=== PATIENT | male | born 1985 | race American Indian/Alaskan Native ===

== ENCOUNTER 2016-12-29 13:00 | Emergency (ER) | payer MEDICAID ==
[2016-12-29 13:01] VITALS: BMI 23.7
[2016-12-29 14:11] VITALS: BP 131/85; PULSE 65; RESP 18; TEMP 98.4; O2SAT 99
--- NOTE | 2016-12-29 15:18 | ED PDOC ---
Arrival/HPI - General Chief Complaint: Abnormal Skin Integrity Time Seen by Provider: 12/29/16 15:12 Historian: Patient - History of Present Illness Narrative History of Present Illness (Text): 12/29/16 15:28 31yr old male presents today with a 3 month history of rash to the left posterior scalp. Patient states about 3 months ago he was prescribed a medication for ringworm that he has been applying to the posterior scalp. Patient states he also has applied bleach. Patient states she now just has a bald spot to the posterior scalp. He denies pruritus. Patient states the hair will not grow back and he doesn't know what to do. Denies fevers or chills. Denies any other complaints. Patient states he does not have a primary care physician in the area. Past Medical History - Provider Review Nursing Documentation Reviewed: Yes - Travel History Have you recently traveled outside [place] w/in the past 3 mons?: No - Infectious Disease Hx of Infectious Diseases: None - Tetanus Immunization Tetanus Immunization: Unknown - Past Medical History Past Medical History: No Previous - Psychiatric Hx Substance Use: No - Past Surgical History Past Surgical History: No Previous - Anesthesia Hx Anesthesia: No - Suicidal Assessment Feels Threatened In Home Enviroment: No Family/Social History - Physician Review Nursing Documentation Reviewed: Yes Family/Social History: Unknown Family HX Smoking Status: Never Smoked Hx Alcohol Use: Yes Frequency of alcohol use: Socially Hx Substance Use: No Hx Substance Use Treatment: No Allergies/Home Meds Allergies/Adverse Reactions: Allergies No Known Allergies Allergy (Verified 03/11/16 09:38) Review of Systems - Review of Systems Constitutional: absent: Fatigue, Fevers Eyes: absent: Eye Pain ENT: absent: Sinus Congestion Respiratory: absent: SOB, Cough Cardiovascular: absent: Chest Pain Gastrointestinal: absent: Abdominal Pain Musculoskeletal: absent: Arthralgias Skin: Rash. absent: Pruritis Neurological: absent: Headache Psychiatric: absent: Anxiety Physical Exam Vital Signs Reviewed: Yes Vital Signs Temp Pulse Resp BP Pulse Ox 12/29/16 14:10 98.4 F 65 18 131/85 99 Temperature: Afebrile Blood Pressure: Normal Pulse: Regular Respiratory Rate: Normal Appearance: Positive for: Well-Appearing, Non-Toxic, Comfortable Pain Distress: None Mental Status: Positive for: Alert and Oriented X 3 - Systems Exam Head: Present: Atraumatic, Normocephalic, Other (there is a golf ball sized area of alopecia located to the left side of the posterior scalp; no scaling noted; no tenderness; no erythema; ) Mouth: Present: Moist Mucous Membranes Neck: Present: Normal Range of Motion Respiratory/Chest: Present: Clear to Auscultation, Good Air Exchange. No: Respiratory Distress, Accessory Muscle Use Cardiovascular: Present: Regular Rate and Rhythm, Normal S1, S2. No: Murmurs Neurological: Present: GCS=15 Skin: Present: Warm, Dry, Normal Color Psychiatric: Present: Alert, Oriented x 3 Medical Decision Making ED Course and Treatment: 12/29/16 15:36 31-year-old male with an area of alopecia to the left posterior scalp 3 months Patient has been on anti-fungal medication without improvement. I advised patient that he needs to follow-up with a insurance writer for further evaluation. I will place the patient on Lotrisone twice daily to the affected area in the meanwhile. Patient may need oral antifungal medications. I will defer to the insurance writer. Patient nontoxic well-appearing no distress with stable vital signs Patient verbalizes understanding of discharge instructions and need for immediate followup. all aspects of this case were discussed the attending of record. Impression: Ringworm use Lotrisone twice daily to the affected area Follow up with the insurance writer within the next 2 days. Follow up with the primary care physician within the next 2 days. return if symptoms worsen,persist or if new symptoms develop. Disposition/Present on Arrival - Present on Arrival Any Indicators Present on Arrival: No History of DVT/PE: No History of Uncontrolled Diabetes: No Urinary Catheter: No History of Decub. Ulcer: No History Surgical Site Infection Following: None - Disposition Have Diagnosis and Disposition been Completed?: Yes Diagnosis: Ringworm of the scalp Disposition: HOME/ ROUTINE Disposition Time: 15:18 Patient Plan: Discharge Condition: GOOD Additional Instructions: use Lotrisone twice daily to the affected area Follow up with the insurance writer within the next 2 days. Follow up with the primary care physician within the next 2 days. return if symptoms worsen,persist or if new symptoms develop. Prescriptions: Clotrimazole/Betamethasone [Lotrisone] 1 appl EXT BID #1 tube Referrals: Nomi Verma MD [Staff Provider] - Follow up with primary Kristy Taveras MD [Staff Provider] - Follow up with primary Shimon Cool MD [Staff Provider] - Follow up with primary Forms: [employer] ([place])
== END 2016-12-29 15:45 | disposition home or self-care (01) ==
LOC: ED 13:00
DX: B35.0 Tinea barbae and tinea capitis (principal)

== ENCOUNTER 2017-06-06 00:15 | Emergency (ER) | payer MEDICAID ==
[2017-06-06 00:17] VITALS: BMI 23.7
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
[2017-06-06] MEDS ORDERED: TDAP Vaccine 0.5 mL Syr IM ONE (00:31)
[2017-06-06 00:46] VITALS: BP 110/80; PULSE 79; TEMP 98.6
[2017-06-06 01:00] VITALS: RESP 19; O2SAT 99
== END 2017-06-06 01:00 | disposition home or self-care (01) ==
LOC: ED 00:15
DX: S61.411A Laceration without foreign body of right hand, initial encounter (principal); W20.8XXA Other cause of strike by thrown, projected or falling object, initial encounter; Y92.009 Unspecified place in unspecified non-institutional (private) residence as the place of occurrence of the external cause; Z23 Encounter for immunization

== ENCOUNTER 2017-06-12 20:28 | Emergency (ER) | payer MEDICAID ==
[2017-06-12 20:29] VITALS: BMI 23.7
[2017-06-12 21:12] VITALS: BP 130/84; PULSE 77; RESP 16; TEMP 97.8; O2SAT 96
--- NOTE | 2017-06-12 21:14 | ED PDOC ---
Arrival/HPI - General Chief Complaint: Suture/Staple Removal Time Seen by Provider: 06/12/17 21:13 Historian: Patient - History of Present Illness Narrative History of Present Illness (Text): 06/12/17 21:13 32 y/o male, here for the suture removal s/p sutured abut 6 days ago. Pt. stated that he has no numbness or tingling, no headache or night sweat, no rash , no palpitation, no rash, no other medical or psychological complaints. Past Medical History - Provider Review Nursing Documentation Reviewed: Yes - Infectious Disease Hx of Infectious Diseases: None - Tetanus Immunization Tetanus Immunization: Unknown - Past Medical History Past Medical History: No Previous - Psychiatric Hx Psychophysiologic Disorder: No Hx Substance Use: No - Past Surgical History Past Surgical History: No Previous - Anesthesia Hx Anesthesia: No - Suicidal Assessment Feels Threatened In Home Enviroment: No Family/Social History - Physician Review Nursing Documentation Reviewed: Yes Family/Social History: Unknown Family HX Smoking Status: Never Smoked Hx Alcohol Use: Yes Hx Substance Use: No Hx Substance Use Treatment: No Allergies/Home Meds Allergies/Adverse Reactions: Allergies No Known Allergies Allergy (Verified 06/12/17 20:51) Home Medications: Home Meds Medication Instructions Recorded Confirmed No Known Home Med 06/12/17 06/12/17 Review of Systems - Review of Systems Constitutional: absent: Fatigue, Fevers Eyes: absent: Vision Changes ENT: absent: Hearing Changes Respiratory: absent: SOB, Cough Cardiovascular: absent: Chest Pain Gastrointestinal: absent: Abdominal Pain, Diarrhea, Nausea, Vomiting Skin: Laceration. absent: Rash, Pruritis, Abscess, Ulcer Neurological: absent: Headache, Dizziness Psychiatric: absent: Anxiety, Depression Physical Exam Vital Signs Reviewed: Yes Vital Signs Temp Pulse Resp BP Pulse Ox 06/12/17 20:54 97.8 F 77 16 130/84 96 Temperature: Afebrile Blood Pressure: Normal Pulse: Regular Respiratory Rate: Normal Appearance: Positive for: Well-Appearing, Non-Toxic, Comfortable Pain Distress: None Mental Status: Positive for: Alert and Oriented X 3 - Systems Exam Head: Present: Atraumatic, Normocephalic Pupils: Present: PERRL Extroacular Muscles: Present: EOMI Conjunctiva: Present: Normal Respiratory/Chest: Present: Clear to Auscultation, Good Air Exchange. No: Respiratory Distress, Accessory Muscle Use Cardiovascular: Present: Regular Rate and Rhythm, Normal S1, S2. No: Murmurs Abdomen: Present: Normal Bowel Sounds. No: Tenderness, Distention, Peritoneal Signs Back: Present: Normal Inspection Upper Extremity: Present: Normal Inspection, Other (rt. wrist dorsum visible 4 reminaing sutures with the wound is healing and not completely healed, no streaking or ulcers. ). No: Cyanosis, Edema Lower Extremity: Present: Normal Inspection. No: Edema Neurological: Present: GCS=15, Speech Normal, Motor Func Grossly Intact, Gait Normal, Memory Normal Skin: Present: Warm, Dry, Normal Color. No: Rashes Psychiatric: Present: Alert, Oriented x 3, Normal Insight, Normal Concentration Medical Decision Making ED Course and Treatment: 06/12/17 21:35 -I told the patient to return to the ER in 2 days for suture removal. -Discharge home with follow up with your own pmd and return to the ER in 2 days for suture removal, return to the ER for any new or worsening signs or symptoms. - PA / CONFIGURATION MANAGEMENT ARCHITECT / Resident Statement / has reviewed & agrees with the documentation as recorded. Disposition/Present on Arrival - Present on Arrival Any Indicators Present on Arrival: No History of DVT/PE: No History of Uncontrolled Diabetes: No Urinary Catheter: No History of Decub. Ulcer: No History Surgical Site Infection Following: None - Disposition Have Diagnosis and Disposition been Completed?: Yes Diagnosis: Visit for wound check Disposition: HOME/ ROUTINE Disposition Time: 21:36 Patient Plan: Discharge Condition: GOOD Additional Instructions: -Discharge home with follow up with your own pmd and return to the ER in 2 days for suture removal, return to the ER for any new or worsening signs or symptoms. Referrals: [facility] [place] [Outside] - Follow up with primary
== END 2017-06-12 21:39 | disposition home or self-care (01) ==
LOC: ED 20:28
DX: Z48.89 Encounter for other specified surgical aftercare (principal)

== ENCOUNTER 2017-06-16 11:11 | Emergency (ER) | payer MEDICAID ==
[2017-06-16 11:11] VITALS: BMI 23.7
[2017-06-16 11:16] VITALS: BP 124/82; PULSE 66; RESP 16; TEMP 98; O2SAT 99
--- NOTE | 2017-06-16 11:30 | ED PDOC ---
Arrival/HPI - General Historian: Patient - General Chief Complaint: Suture/Staple Removal Time Seen by Provider: 06/16/17 11:12 - History of Present Illness Narrative History of Present Illness (Text): 06/16/17 11:27 Pt is a 32 yo M presents to ED for suture removal. Patient returned 7 days after sutures had been placed, 1 suture was removed at that time, but it was deemed that the laceration had no healed completely. He returned today for removal of the other 4 nylon sutures. Pt denied pain, swelling, discharge, erythema. (Boyd Reese) Past Medical History - Infectious Disease Hx of Infectious Diseases: None - Tetanus Immunization Tetanus Immunization: Unknown - Past Medical History Past Medical History: No Previous - Cardiac Hx Cardiac Disorders: No - Pulmonary Hx Respiratory Disorders: No - Neurological Hx Neurological Disorder: No - HEENT Hx HEENT Disorder: No - Renal Hx Renal Disorder: No - Endocrine/Metabolic Hx Endocrine Disorders: No - Hematological/Oncological Hx Blood Disorders: No - Integumentary Hx Dermatological Disorder: No - Musculoskeletal/Rheumatological Hx Musculoskeletal Disorders: No - Gastrointestinal Hx Gastrointestinal Disorders: No - Genitourinary/Gynecological Hx Genitourinary Disorders: Yes Hx Sexually Transmitted Diseases: Yes - Psychiatric Hx Psychophysiologic Disorder: No Hx Substance Use: No - Past Surgical History Past Surgical History: No Previous - Anesthesia Hx Anesthesia: No - Suicidal Assessment Feels Threatened In Home Enviroment: No Family/Social History Family/Social History: No Known Family HX Smoking Status: Never Smoked Hx Alcohol Use: Yes Hx Substance Use: No Hx Substance Use Treatment: No Allergies/Home Meds Allergies/Adverse Reactions: Allergies No Known Allergies Allergy (Verified 06/16/17 11:21) Home Medications: Home Meds Medication Instructions Recorded Confirmed No Known Home Med 06/12/17 06/16/17 Review of Systems - Review of Systems Constitutional: Normal Eyes: Normal ENT: Normal Respiratory: Normal Cardiovascular: Normal Gastrointestinal: Normal Genitourinary Male: Normal Musculoskeletal: Normal Skin: Normal Neurological: Normal Endocrine: Normal Hemo/Lymphatic: Normal Psychiatric: Normal Physical Exam Temperature: Afebrile Blood Pressure: Normal Pulse: Regular Respiratory Rate: Normal - Systems Exam Head: Present: Atraumatic, Normocephalic Conjunctiva: Present: Normal Mouth: Present: Moist Mucous Membranes Neck: Present: Normal Range of Motion Respiratory/Chest: Present: Clear to Auscultation Cardiovascular: Present: Regular Rate and Rhythm Abdomen: Present: Normal Bowel Sounds. No: Tenderness, Distention, Peritoneal Signs Upper Extremity: Present: Normal Inspection Lower Extremity: Present: Normal Inspection Neurological: Present: GCS=15 Skin: Present: Other (4 sutures removed; skin well approximated and healed on the dorsum of right hand) Psychiatric: Present: Alert, Oriented x 3 Vital Signs Temp Pulse Resp BP Pulse Ox 06/16/17 11:15 98.0 F 66 16 124/82 99 Medical Decision Making ED Course and Treatment: 06/16/17 11:29 Assessment: 32 yo M presents for suture removal Plan: - 4 nylon sutures removed (Boyd Reese) 06/16/17 12:19 pt seen with resident sutures c/d/i, removed by resident. (Raphael Souza) Disposition/Present on Arrival - Present on Arrival Any Indicators Present on Arrival: No History of DVT/PE: No History of Uncontrolled Diabetes: No Urinary Catheter: No History of Decub. Ulcer: No History Surgical Site Infection Following: None - Disposition Have Diagnosis and Disposition been Completed?: Yes Disposition Time: 11:30 - Disposition Diagnosis: Visit for suture removal Disposition: HOME/ ROUTINE Condition: STABLE Discharge Instructions (ExitCare): Stitches Removal (ED) Additional Instructions: May clean area with soap and water, do not scrub. Forms: [employer] ([place]yan)
== END 2017-06-16 11:40 | disposition home or self-care (01) ==
LOC: ED 11:11
DX: Z48.02 Encounter for removal of sutures (principal)

== ENCOUNTER 2017-07-01 03:41 | Emergency (ER) | payer MEDICAID ==
[2017-07-01 03:41] VITALS: BMI 23.7
[2017-07-01 03:52] VITALS: RESP 18
--- NOTE | 2017-07-01 04:10 | ED PDOC ---
Arrival/HPI - General Chief Complaint: Flu-like Symptoms Time Seen by Provider: 07/01/17 03:42 Historian: Patient - History of Present Illness Narrative History of Present Illness (Text): 07/01/17 04:07 Ned Mueller is a 32 year old male who presents to the Emergency department complaining of sore throat, chest congestion, headache,some neck discomfort.No hx. of any trauma. Patient denies any fever, chills, chest pain, shortness of breath, nausea, vomiting, back pain, neck pain, dizziness, or any other complaints. Symptom Onset: Gradual Symptom Course: Unchanged Activities at Onset: Light Context: Home Past Medical History - Provider Review Nursing Documentation Reviewed: Yes - Infectious Disease Hx of Infectious Diseases: None - Tetanus Immunization Tetanus Immunization: Unknown - Past Medical History Past Medical History: No Previous - Cardiac Hx Cardiac Disorders: No - Pulmonary Hx Respiratory Disorders: No - Neurological Hx Neurological Disorder: No - HEENT Hx HEENT Disorder: No - Renal Hx Renal Disorder: No - Endocrine/Metabolic Hx Endocrine Disorders: No - Hematological/Oncological Hx Blood Disorders: No - Integumentary Hx Dermatological Disorder: No - Musculoskeletal/Rheumatological Hx Musculoskeletal Disorders: No - Gastrointestinal Hx Gastrointestinal Disorders: No - Genitourinary/Gynecological Hx Genitourinary Disorders: Yes Hx Sexually Transmitted Diseases: Yes - Psychiatric Hx Psychophysiologic Disorder: No Hx Substance Use: No - Past Surgical History Past Surgical History: No Previous - Anesthesia Hx Anesthesia: No - Suicidal Assessment Feels Threatened In Home Enviroment: No Family/Social History - Physician Review Nursing Documentation Reviewed: Yes Family/Social History: Unknown Family HX Smoking Status: Never Smoked Hx Alcohol Use: Yes Hx Substance Use: No Hx Substance Use Treatment: No Allergies/Home Meds Allergies/Adverse Reactions: Allergies No Known Allergies Allergy (Verified 07/01/17 03:54) Review of Systems - Physician Review All systems were reviewed & negative as marked: Yes - Review of Systems Constitutional: Normal. absent: Fevers Eyes: Normal ENT: Sore Throat Respiratory: absent: Cough Cardiovascular: Normal. absent: Chest Pain Gastrointestinal: Normal. absent: Abdominal Pain, Diarrhea, Nausea, Vomiting Genitourinary Male: Normal. absent: Dysuria, Frequency, Hematuria, Urinary Output Changes Musculoskeletal: Normal. absent: Back Pain, Neck Pain Skin: Normal. absent: Rash Neurological: Headache. absent: Dizziness Endocrine: Normal Hemo/Lymphatic: Normal Psychiatric: Normal Physical Exam Vital Signs Reviewed: Yes Vital Signs Temp Pulse Resp BP Pulse Ox 07/01/17 05:40 98.2 F 65 18 130/87 98 07/01/17 03:51 97.6 F 80 18 146/96 H 99 Temperature: Afebrile Blood Pressure: Normal Pulse: Regular Respiratory Rate: Normal Appearance: Positive for: Well-Appearing, Non-Toxic, Comfortable Pain Distress: None Mental Status: Positive for: Alert and Oriented X 3 - Systems Exam Head: Present: Atraumatic, Normocephalic Pupils: Present: PERRL Extroacular Muscles: Present: EOMI Conjunctiva: Present: Normal Ears: Present: Normal, NORMAL TM, Normal Canal. No: Erythema, TM Bulging, Fluid , TM Perf Mouth: Present: Moist Mucous Membranes Pharnyx: Present: ERYTHEMA (Erythema to posterior pharynx). No: EXUDATE, TONSILS ENLARGED, Peritonsilar Swelling, Uvular Deviation, Muffled/Hoarse Voice , Strider, Soft Palate/Uvular Edema Nose (External): Present: Atraumatic Nose (Internal): Present: Normal Inspection Neck: Present: Normal Range of Motion (Supple). No: Meningeal Signs, MIDLINE TENDERNESS, Paraspinal Tenderness Respiratory/Chest: Present: Clear to Auscultation, Good Air Exchange. No: Respiratory Distress, Accessory Muscle Use Cardiovascular: Present: Regular Rate and Rhythm, Normal S1, S2. No: Murmurs Abdomen: Present: Normal Bowel Sounds. No: Tenderness, Distention, Peritoneal Signs Back: Present: Normal Inspection. No: CVA Tenderness, Midline Tenderness, Paraspinal Tenderness Upper Extremity: Present: Normal Inspection. No: Cyanosis, Edema Lower Extremity: Present: Normal Inspection. No: Edema Neurological: Present: GCS=15, CN II-XII Intact, Speech Normal Skin: Present: Warm, Dry, Normal Color. No: Rashes Psychiatric: Present: Alert, Oriented x 3, Normal Insight, Normal Concentration Medical Decision Making ED Course and Treatment: 07/01/17 04:07 Impression: 32 year old male complaining of sore throat, chest congestion,headache,neck discomfort.. Plan: -- CT Head w/o contrast -- Labs -- Rapid influenza -- Reassess and disposition Progress Notes: 07/01/17 05:12 CT Head shows: Brain: No intracranial hemorrhage. No mass. No definite edema. Ventricles: No hydrocephalus. Bones/joints: No acute fracture. Soft tissues: Unremarkable. Sinuses: RIGHT sphenoid retention cyst. Mastoid air cells: No mastoid effusion. Orbits: Unremarkable as visualized. IMPRESSION: 1. No definite acute intracranial abnormality. 2. Incidental/non-acute findings are described above. 07/01/17 05:52 On re-evaluation, patient feels better and is in no acute distress. I have discussed the results and plan with the patient, who expresses understanding. Patient in agreement with plan to be discharged home. Patient is stable for discharge. Patient was instructed to follow up with physician or return if symptoms worsen or new concerning symptoms arise. - Lab Interpretations Lab Results: 07/01/17 04:17 07/01/17 04:17 Lab Results 07/01/17 04:17: Influenza Typ A,B (EIA) Negative for flu a/b 07/01/17 04:17: WBC 6.8, RBC 4.89, Hgb 14.7, Hct 44.1, MCV 90.2, MCH 30.1, MCHC 33.3, RDW 13.0, Plt Count 258, MPV 10.8 07/01/17 04:17: Sodium 142, Potassium 4.0, Chloride 102, Carbon Dioxide 27, Anion Gap 17, BUN 18, Creatinine 1.2, Est GFR ( Amer) > 60, Est GFR (Non- Af Amer) > 60, Random Glucose 114 H, Calcium 9.8, Total Bilirubin 0.4, AST 36, ALT 58 H, Alkaline Phosphatase 59, Total Protein 7.9, Albumin 4.5, Globulin 3.4 , Albumin/Globulin Ratio 1.3 I have reviewed the lab results: Yes - RAD Interpretation Radiology Orders: 07/01/17 04:07 CHEST PORTABLE [RAD] Stat 07/01/17 04:08 HEAD W/O CONTRAST [CT] Stat Golf Teacher: Radiologist - Medication Orders Current Medication Orders: Discontinued Medications Amoxicillin (Amoxil 500 Mg Cap) 500 mg PO STAT STA PRN Reason: Protocol Stop: 07/01/17 05:45 Last Admin: 07/01/17 05:58 Dose: 500 mg Cyclobenzaprine HCl (Flexeril) 10 mg PO STAT STA Stop: 07/01/17 05:46 Last Admin: 07/01/17 05:59 Dose: 10 mg Ibuprofen (Motrin Tab) 600 mg PO STAT STA Stop: 07/01/17 05:46 Last Admin: 07/01/17 05:59 Dose: 600 mg MAR Pain/Vitals Document 07/01/17 05:59 JAME (Rec: 07/01/17 06:00 RG [id number]) Pain Reassessment Is This A Pain ReAssessment? Yes Sleep Is patient sleeping during reassessment? No Pain Scale Used Pain Scale Used Numeric Location Pain Location Body Site Neck Description Intermittent Intensity 5 Scale Used Numeric - Scribe Statement The provider has reviewed the documentation as recorded by the Scribe Lizy Hidalgo All medical record entries made by the Scribe were at my direction and personally dictated by me. I have reviewed the chart and agree that the record accurately reflects my personal performance of the history, physical exam, medical decision making, and the department course for this patient. I have also personally directed, reviewed, and agree with the discharge instructions and disposition. Disposition/Present on Arrival - Present on Arrival Any Indicators Present on Arrival: No History of DVT/PE: No History of Uncontrolled Diabetes: No Urinary Catheter: No History of Decub. Ulcer: No History Surgical Site Infection Following: None - Disposition Have Diagnosis and Disposition been Completed?: Yes Diagnosis: Pharyngitis, Muscle spasm Disposition: HOME/ ROUTINE Disposition Time: 05:50 Patient Plan: Discharge Condition: GOOD Discharge Instructions (ExitCare): Sore Throat in Adults, Muscle Spasms (DC) Additional Instructions: Take meds as prescribed/follow up with your doctor this week Prescriptions: Amoxicillin [Amoxil 500 mg Cap] 500 mg PO TID #21 cap Cyclobenzaprine [Cyclobenzaprine HCl] 10 mg PO TID PRN #15 tab PRN Reason: Muscle Spasm Ibuprofen [Motrin] 600 mg PO Q6 PRN #16 tab PRN Reason: Pain, Moderate (4-7) Forms: [facility] (Bel[place]ian)
[2017-07-01 04:38] LABS: HEMOGLOBIN 14.7 g/dL (14.0-18.0); MEAN CELL VOLUME 90.2 fl (80.0-105.0); MEAN CORPUSCULAR HEMOGLOBIN 30.1 pg (25.0-35.0); MEAN CORPUSCULAR HGB CONC 33.3 g/dl (31.0-37.0); MEAN PLATELET VOLUME 10.8 fl (7.0-11.0); RBC 4.89 10^6/uL (3.5-6.1); WHITE BLOOD COUNT 6.8 10^3/ul (4.5-11.0)
[2017-07-01 04:50] LABS: ALB/GLOB RATIO 1.3 (1.1-1.8); ALBUMIN 4.5 g/dL (3.0-4.8); ALT/SGPT 58 U/L (7-56); AST/SGOT 36 U/L (17-59); BLOOD UREA NITROGEN 18 mg/dL (7-21); CALCIUM 9.8 mg/dL (8.4-10.5); GFR AFRICAN-AMERICAN > 60; GFR NON-AFRICAN AMERICAN > 60
--- NOTE | 2017-07-01 05:09 | CT ---
EXAM: CT Head Without Intravenous Contrast CLINICAL HISTORY: 32 years old, male; Pain; Headache TECHNIQUE: Axial computed tomography images of the head/brain without intravenous contrast. All CT scans at this facility use one or more dose reduction techniques, viz.: automated exposure control; ma/kV adjustment per patient size (including targeted exams where dose is matched to indication; i.e. head); or iterative reconstruction technique. Coronal and sagittal reformatted images were created and reviewed. COMPARISON: No relevant prior studies available. FINDINGS: Brain: No intracranial hemorrhage. No mass. No definite edema. Ventricles: No hydrocephalus. Bones/joints: No acute fracture. Soft tissues: Unremarkable. Sinuses: RIGHT sphenoid retention cyst. Mastoid air cells: No mastoid effusion. Orbits: Unremarkable as visualized. IMPRESSION: 1. No definite acute intracranial abnormality. 2. Incidental/non-acute findings are described above.
[2017-07-01 05:41] VITALS: BP 130/87; PULSE 65; TEMP 98.2; O2SAT 98
--- NOTE | 2017-07-01 09:25 | RAD ---
HISTORY: cough COMPARISON: No prior. FINDINGS: LUNGS: No active pulmonary disease. PLEURA: No significant pleural effusion identified, no pneumothorax apparent. CARDIOVASCULAR: Normal. OSSEOUS STRUCTURES: No significant abnormalities. VISUALIZED UPPER ABDOMEN: Normal. OTHER FINDINGS: None. IMPRESSION: No active disease.
== END 2017-07-01 05:55 | disposition home or self-care (01) ==
LOC: ED 03:41
DX: J02.9 Acute pharyngitis, unspecified (principal); M62.838 Other muscle spasm